=== PATIENT | female | born 2000 | race American Indian/Alaskan Native ===

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

== ENCOUNTER 2021-04-10 05:39 | Inpatient (IN) | payer MEDICAID ==
[2021-04-10] MEDS ORDERED: Lactated Ringers 1,000 ML IV ONE (07:10)
[2021-04-10] MEDS ORDERED: Tranexamic Acid 1,000 MG in Sodium Chloride 0.9% 100 ML IV PRN ×2 (07:10→22:30)
[2021-04-10] MEDS ORDERED: Ondansetron 4 MG/2 ML SDV IVPUSH PRN ×2 (07:10)
[2021-04-10] MEDS ORDERED: Naloxone 2 MG/2 ML Syringe IVPUSH PRN (07:10)
[2021-04-10] MEDS ORDERED: Acetaminophen 325 MG Tab PO PRN (07:10)
[2021-04-10] MEDS ORDERED: ePHEDrine 50 MG/ML SDV IVPUSH PRN (07:10)
[2021-04-10] MEDS ORDERED: Misoprostol 400 MCG (4 X 100 MCG TAB) RECTAL PRN ×2 (07:10→22:30)
[2021-04-10] MEDS ORDERED: Methylergonovine 0.2 MG/1 ML Amp IM PRN (07:10)
[2021-04-10] MEDS ORDERED: Carboprost Tromethamine 250 MCG/1 ML Amp IM PRN ×2 (07:10→22:30)
[2021-04-10] MEDS ORDERED: Lidocaine 1% 30 ML SDV INJECT PRN (07:10)
[2021-04-10] MEDS ORDERED: Promethazine 25 MG/ML SDV IM PRN (07:10)
[2021-04-10] MEDS ORDERED: fentaNYL 100 MCG/2 ML SDV IVPUSH PRN (07:10)
[2021-04-10] MEDS ORDERED: Lactated Ringers 500 ML IV SCH ×2 (07:15)
[2021-04-10] MEDS ORDERED: Oxytocin/Normal Saline 30 UNIT/500 ML BAG IV SCH (07:15)
[2021-04-10] MEDS ORDERED: Nalbuphine 10 MG/1 ML Vial IM ONE (10:11)
[2021-04-10] MEDS: Lactated Ringers 1,000 ML IV SCH ×3 (14:28→17:18)
[2021-04-10] MEDS ORDERED: Sodium Bicarbonate 4.2% 2.5 MEQ/5 ML SDV ONE ×2 (16:50→17:03)
[2021-04-10] MEDS ORDERED: EPINEPHrine 1 MG/ML SDV ONE ×2 (16:50→17:03)
[2021-04-10] MEDS ORDERED: fentaNYL 100 MCG/2 ML SDV ITHECAL ONE (16:50)
[2021-04-10] MEDS ORDERED: Sodium Chloride 0.9% 20 ML SDV ONE (16:50)
[2021-04-10] MEDS ORDERED: fentaNYL 100 MCG/2 ML SDV ONE (17:03)
[2021-04-10] MEDS ORDERED: Benzocaine/Menthol 20%-0.5% Spray 78 GM Cannister TOP PRN (22:30)
[2021-04-10] MEDS ORDERED: Oxytocin 10 Units/1 ML SDV IM PRN (22:30)
[2021-04-10] MEDS ORDERED: Simethicone 80 MG Tab.Chew PO PRN (22:30)
[2021-04-11] MEDS ORDERED: Witch Hazel Medicated Pads 100/Jar TOP PRN (00:18)
[2021-04-11] MEDS: Docusate Sodium 100 MG Cap PO PRN ×3 (00:20→19:32)
[2021-04-11] MEDS: Ibuprofen 800 MG Tab PO PRN ×3 (00:20→19:32)
[2021-04-11] MEDS: Acetaminophen 325 MG Tab PO PRN ×2 (04:12→19:32)
[2021-04-11] MEDS: Prenatal Multivitamin with Calcium/Folic Acid/Iron Tab PO SCH (09:11)
[2021-04-11] MEDS: Ferrous Sulfate 325 MG Tab PO SCH (09:11)
[2021-04-11] MEDS: guaiFENesin 600 MG Tab.ER PO SCH ×2 (09:16→19:31)
[2021-04-11] MEDS: Benzocaine/Cetylpyridinium/Menthol Lozenge MUCMEM PRN ×2 (09:16→19:31)
[2021-04-12] MEDS: guaiFENesin 600 MG Tab.ER PO SCH ×2 (07:11→08:22)
[2021-04-12] MEDS: Benzocaine/Cetylpyridinium/Menthol Lozenge MUCMEM PRN (08:22)
[2021-04-12] MEDS: Ferrous Sulfate 325 MG Tab PO SCH (08:23)
[2021-04-12] MEDS: Docusate Sodium 100 MG Cap PO PRN (08:23)
[2021-04-12] MEDS: Prenatal Multivitamin with Calcium/Folic Acid/Iron Tab PO SCH (08:23)
[2021-04-12] MEDS: Ibuprofen 800 MG Tab PO PRN (08:23)
[2021-04-12 09:50] VITALS: BP 132/78; PULSE 105
== END 2021-04-12 13:00 | disposition home or self-care (01) | DRG 805 ==
LOC: DL.OBCHECK 05:39 → DL.OB 07:40
PROVIDERS: ADMIT Family Medicine; ATTEND Family Medicine
PROC: 10D07Z6 Extraction of Products of Conception, Vacuum, Via Natural or Artificial Opening (ICD-10-PCS; principal; 2021-04-10)
PROC: 0HQ9XZZ Repair Perineum Skin, External Approach (ICD-10-PCS; 2021-04-10)
PROC: 0UQMXZZ Repair Vulva, External Approach (ICD-10-PCS; 2021-04-10)
PROC: 3E0R3BZ Introduction of Anesthetic Agent into Spinal Canal, Percutaneous Approach (ICD-10-PCS; 2021-04-10)
PROC: 00HU33Z Insertion of Infusion Device into Spinal Canal, Percutaneous Approach (ICD-10-PCS; 2021-04-10)
DX: O99.02 Anemia complicating childbirth (principal); U07.1 COVID-19; Z37.0 Single live birth; O98.52 Other viral diseases complicating childbirth; D64.9 Anemia, unspecified; O99.344 Other mental disorders complicating childbirth; F41.9 Anxiety disorder, unspecified; F32.A Depression, unspecified; O70.0 First degree perineal laceration during delivery; O66.0 Obstructed labor due to shoulder dystocia; O77.0 Labor and delivery complicated by meconium in amniotic fluid
CPT/HCPCS: 36415; 51701; 59409; 85027; 86592; A9270-GY; J0171; J2300; J2405; J2590; J3010; J7120; U0002

== ENCOUNTER 2021-12-20 08:50 | Emergency (ER) | payer MEDICAID | END 2021-12-20 10:50 | disposition home or self-care (01) | LOC: DL.ED 08:50 | DX: S51.811A Laceration without foreign body of right forearm, initial encounter (principal); W45.8XXA Other foreign body or object entering through skin, initial encounter | CPT/HCPCS: 12004; 73090-RT; 99283 ==

== ENCOUNTER 2021-12-20 11:48 | Emergency (ER) | payer MEDICAID ==
[~2021-12-20 11:48] MED LIST: Bacitracin Oint 1 GM U/D Packet TOP ONE; Bupivacaine 0.5% 30 ML SDV INJECT ONE; Lidocaine 1% 10 ML MDV INJECT ONE
== END 2021-12-20 13:04 | disposition home or self-care (01) ==
LOC: DL.ED 11:48
DX: R55 Syncope and collapse (principal)
CPT/HCPCS: 99283; J3490

== ENCOUNTER 2022-12-05 18:44 | Emergency (ER) | payer MEDICAID ==
[2022-12-05] MEDS ORDERED: Ibuprofen 400 MG Tab PO ONE (19:11)
[2022-12-05] MEDS ORDERED: Lactated Ringers 1,000 ML IV ONE ×2 (19:11→20:08)
[2022-12-05 19:24] LABS: APPEARANCE,URINE CLEAR (CLEAR); BILIRUBIN,URINE SMALL (NEGATIVE); COLOR,URINE YELLOW (YELLOW); GLUCOSE,URINE NEGATIVE (NEGATIVE); KETONES,URINE >=160 (NEGATIVE); LEUKOCYTE ESTERASE,URINE NEGATIVE (NEGATIVE); NITRITE,URINE NEGATIVE (NEGATIVE); OCCULT BLOOD,URINE NEGATIVE (NEGATIVE); PROTEIN,URINE 100 (NEGATIVE)
[2022-12-05 19:31] LABS: AMPHETAMINES,URINE NEGATIVE (NEGATIVE); BARBITURATES,URINE NEGATIVE (NEGATIVE); BENZODIAZEPINE,URINE NEGATIVE (NEGATIVE); MDMA (ECSTASY), URINE NEGATIVE (NEGATIVE); METHADONE,URINE NEGATIVE (NEGATIVE); METHAMPHETAMINES,URINE NEGATIVE (NEGATIVE); OPIATES,URINE NEGATIVE (NEGATIVE); OXYCODONE,URINE NEGATIVE (NEGATIVE); PHENCYCLIDINE,URINE NEGATIVE (NEGATIVE); TCA,URINE NEGATIVE (NEGATIVE)
[2022-12-05 19:35] LABS: BASOPHILS PERCENT AUTO 0.1 % (0.0-1.0); EOSINOPHILS PERCENT AUTO 0.1 % (1.0-3.0); HEMATOCRIT 38.5 % (37.0-47.0); HEMOGLOBIN 14.4 g/dL (12.0-16.0); LYMPHOCYTES PERCENT AUTO 10.2 % (20.5-50.1); MEAN CORPUSCULAR HGB CONC 37.4 g/dL (33.0-35.0); MEAN CORPUSCULAR VOLUME 77.6 fL (80-100); MONOCYTES PERCENT AUTO 8.6 % (2-8); PLATELET COUNT,PLT 299 10^3/uL (150-450); RED BLOOD CELL COUNT 4.96 10^6/uL (4.2-5.4); WHITE BLOOD CELL COUNT,WBC 14.9 10^3/uL (5.0-10.0)
[2022-12-05 19:47] LABS: BACTERIA,URINE MODERATE /HPF (0-FEW/HPF); EPITHELIAL CELLS,URINE MANY /HPF (NOT SEEN)
[2022-12-05 19:48] LABS: MUCUS,URINE MODERATE /LPF (NOT SEEN)
[2022-12-05 19:56] LABS: A/G RATIO 1.1; ALANINE AMINOTRANSFERASE,ALT 25 U/L (14-59); ALKALINE PHOSPHATASE 101 U/L (46-116); ASPARTATE AMNIOTRANSFERASE,AST 14 U/L (15-37); BILIRUBIN TOTAL 0.7 mg/dL (0.2-1.0); BLOOD UREA NITROGEN,BUN 8 mg/dL (7-18); BUN/CREATININE RATIO 8.7 (No establ ref range); C-REACTIVE PROTEIN 12.51 ng/dL (<=0.30); CALCIUM 8.9 mg/dL (8.5-10.1); CARBON DIOXIDE,CO2 21 mmol/L (21-32); CHLORIDE,CL 102 mmol/L (98-107); CREATININE 0.92 mg/dL (0.55-1.02); EST CRCL DRUG DOSING (CG) 97.58 mL/min; ESTIMATED GFR 91 mL/min (>=60); ETHANOL BLOOD MEDICAL < 3 mg/dL (0); GLUCOSE RANDOM 107 mg/dL (70-99); PROTEIN TOTAL,TP 7.7 g/dL (6.4-8.2); SODIUM,NA 139 mmol/L (136-145)
[2022-12-05 19:59] VITALS: BP 110/68; PULSE 118
[2022-12-05 20:02] LABS: HCG QUALITATIVE,SERUM NEGATIVE (NEGATIVE)
[2022-12-05] MEDS ORDERED: Ondansetron 4 MG/2 ML SDV IVPUSH ONE (20:08)
[2022-12-05] MEDS ORDERED: Potassium Chloride 10% 20 MEQ/15 ML Soln 15 ML UD Cup PO ONE (20:09)
[2022-12-05] MEDS ORDERED: cefTRIAXone 1 GM Vial IVPUSH ONE (20:10)
== END 2022-12-05 21:15 | disposition home or self-care (01) ==
LOC: DL.ED 18:44
DX: J10.1 Influenza due to other identified influenza virus with other respiratory manifestations (principal); N30.00 Acute cystitis without hematuria; Z20.822 Contact with and (suspected) exposure to COVID-19; Z79.899 Other long term (current) drug therapy
CPT/HCPCS: 36415; 80053; 80305-QW; 80307; 81001; 83605; 84703; 85025; 86140; 87081; 87430; 87804; 96361; 96374; 96375; 99283-25; 99284; A9270-GY; J0696; J2405; J7120; U0002

== ENCOUNTER 2022-12-26 11:13 | Emergency (ER) | payer MEDICAID | END 2022-12-26 11:15 | disposition left against medical advice (07) | LOC: DL.ED 11:13 | DX: Z53.21 Procedure and treatment not carried out due to patient leaving prior to being seen by health care provider (principal) ==

== ENCOUNTER 2023-09-02 15:59 | Emergency (ER) | payer MEDICAID ==
[2023-09-02] MEDS: Sodium Chloride 0.9% 1,000 ML IV ONE (17:30)
[2023-09-02 17:34] LABS: BASOPHILS PERCENT AUTO 0.1 % (0.0-1.0); EOSINOPHILS PERCENT AUTO 0.2 % (1.0-3.0); HEMATOCRIT 38.2 % (37.0-47.0); HEMOGLOBIN 13.1 g/dL (12.0-16.0); LYMPHOCYTES PERCENT AUTO 10.7 % (20.5-50.1); MEAN CORPUSCULAR HEMOGLOBIN 27.8 pg (27.0-34.0); MEAN CORPUSCULAR HGB CONC 34.3 g/dL (33.0-35.0); MEAN CORPUSCULAR VOLUME 80.9 fL (80-100); MONOCYTES PERCENT AUTO 4.2 % (2-8); NEUTROPHILS PERCENT AUTO 84.8 % (42.2-75.2); PLATELET COUNT,PLT 315 10^3/uL (150-450); RED BLOOD CELL COUNT 4.72 10^6/uL (4.2-5.4)
[2023-09-02 17:41] VITALS: BP 127/84; PULSE 67
[2023-09-02] MEDS: Famotidine 20 MG/2 ML SDV IVPUSH ONE (17:41)
[2023-09-02] MEDS: Ondansetron 4 MG/2 ML SDV IVPUSH ONE ×2 (17:41→18:50)
[2023-09-02 17:54] LABS: A/G RATIO 0.9; ALANINE AMINOTRANSFERASE,ALT 19 U/L (14-59); ALBUMIN 3.4 g/dL (3.4-5.0); ALKALINE PHOSPHATASE 61 U/L (46-116); ANION GAP 18.5 mEq/L (7-13); ASPARTATE AMNIOTRANSFERASE,AST 10 U/L (15-37); BILIRUBIN TOTAL 0.4 mg/dL (0.2-1.0); BLOOD UREA NITROGEN,BUN 6 mg/dL (7-18); BUN/CREATININE RATIO 8.8 (No establ ref range); CALCIUM 9.3 mg/dL (8.5-10.1); CARBON DIOXIDE,CO2 21 mmol/L (21-32); CHLORIDE,CL 104 mmol/L (98-107); CREATININE 0.68 mg/dL (0.55-1.02); GLUCOSE RANDOM 79 mg/dL (70-99); LIPASE 13 U/L (16-77); MAGNESIUM 1.8 mg/dL (1.8-2.4); POTASSIUM,K 3.5 mmol/L (3.5-5.1); PROTEIN TOTAL,TP 7.2 g/dL (6.4-8.2); SODIUM,NA 140 mmol/L (136-145)
[2023-09-02 17:56] LABS: ESTIMATED GFR 127 mL/min (>=60)
[2023-09-02 18:47] LABS: APPEARANCE,URINE SLIGHTLY CLOUDY (CLEAR); BILIRUBIN,URINE NEGATIVE (NEGATIVE); COLOR,URINE DARK YELLOW (YELLOW); GLUCOSE,URINE NEGATIVE (NEGATIVE); KETONES,URINE >=160 (NEGATIVE); LEUKOCYTE ESTERASE,URINE TRACE (NEGATIVE); NITRITE,URINE POSITIVE (NEGATIVE); OCCULT BLOOD,URINE NEGATIVE (NEGATIVE); PH,URINE 6.5 (5.0-9.0); PROTEIN,URINE 30 (NEGATIVE)
[2023-09-02] MEDS: Sodium Chloride 0.9% 500 ML IV ONE (18:49)
[2023-09-02 18:59] LABS: AMORPHOUS SEDIMENT,URINE FEW /HPF (NOT SEEN); BACTERIA,URINE MANY /HPF (0-FEW/HPF); EPITHELIAL CELLS,URINE MODERATE /HPF (NOT SEEN); MUCUS,URINE MODERATE /LPF (NOT SEEN); RBC,URINE 0-5 /HPF (0-5)
[2023-09-02] MEDS: cefTRIAXone 1 GM Vial IVPUSH ONE (19:13)
== END 2023-09-02 19:24 | disposition home or self-care (01) ==
LOC: DL.ED 15:59
DX: O21.0 Mild hyperemesis gravidarum (principal); O99.282 Endocrine, nutritional and metabolic diseases complicating pregnancy, second trimester; E86.0 Dehydration; O23.41 Unspecified infection of urinary tract in pregnancy, first trimester; Z3A.09 9 weeks gestation of pregnancy; Z79.899 Other long term (current) drug therapy; Z86.16 Personal history of COVID-19
CPT/HCPCS: 36415; 80053; 81001; 83690; 83735; 84702; 85025; 87086; 87088; 87186; 96361; 96374; 96375; 96376; 99283; 99284; J0696; J2405; J3490; J7030

== ENCOUNTER 2024-03-25 00:05 | Observation (INO) | payer MEDICAID ==
[~2024-03-25 00:05] MED LIST changes: +Acetaminophen 325 MG Tab PO PRN; -Bacitracin Oint 1 GM U/D Packet TOP ONE; -Bupivacaine 0.5% 30 ML SDV INJECT ONE; +Carboprost Tromethamine 250 MCG/1 ML Amp IM PRN; +Lactated Ringers 1,000 ML IV SCH; -Lidocaine 1% 10 ML MDV INJECT ONE; +Lidocaine 1% 30 ML SDV INJECT ONE; +Methylergonovine 0.2 MG/1 ML Amp IM PRN; +Misoprostol 100 MCG Tab RECTAL PRN; +Ondansetron 4 MG/2 ML SDV IVPUSH PRN; +Oxytocin/Normal Saline 30 UNIT/500 ML BAG IV SCH; +Sodium Chloride 0.9% 10 ML Syringe FLUSH PRN; +Tranexamic Acid 1,000 MG in Sodium Chloride 0.9% 100 ML IV PRN; +fentaNYL 100 MCG/2 ML SDV IVPUSH PRN
[2024-03-25 00:44] LABS: HEMATOCRIT 32.8 % (37.0-47.0); HEMOGLOBIN 10.5 g/dL (12.0-16.0); MEAN CORPUSCULAR VOLUME 84.3 fL (80-100); RED BLOOD CELL COUNT 3.89 10^6/uL (4.2-5.4); WHITE BLOOD CELL COUNT,WBC 8.3 10^3/uL (5.0-10.0)
[2024-03-25] MEDS: Misoprostol 50 MCG (1/2 of 100 MCG) Tab PO SCH (01:15)
[2024-03-25] MEDS: Misoprostol 25 MCG (1/4 of 100 MCG) Tab PO PRN (10:45)
[2024-03-25] MEDS: Lactated Ringers 1,000 ML IV ONE (14:08)
[2024-03-25 17:45] VITALS: BP 118/75; PULSE 99
== END 2024-03-25 17:10 | disposition home or self-care (01) ==
LOC: DL.OB 00:05
PROVIDERS: ADMIT Family Medicine; ATTEND Family Medicine
DX: O99.013 Anemia complicating pregnancy, third trimester (principal); O21.9 Vomiting of pregnancy, unspecified; O23.43 Unspecified infection of urinary tract in pregnancy, third trimester; N39.0 Urinary tract infection, site not specified; O99.343 Other mental disorders complicating pregnancy, third trimester; F41.9 Anxiety disorder, unspecified; F32.A Depression, unspecified; Z79.899 Other long term (current) drug therapy
CPT/HCPCS: 36415; 85027; A9270-GY; J7120

== ENCOUNTER 2024-03-27 00:07 | Inpatient (IN) | payer MEDICAID ==
[~2024-03-27 00:07] MED LIST changes: -Lactated Ringers 1,000 ML IV SCH; -Lidocaine 1% 30 ML SDV INJECT ONE; -Methylergonovine 0.2 MG/1 ML Amp IM PRN; -Misoprostol 100 MCG Tab RECTAL PRN; +Misoprostol 25 MCG (1/4 of 100 MCG) Tab VAG PRN; +Naloxone 2 MG/2 ML Syringe IVPUSH PRN; -Oxytocin/Normal Saline 30 UNIT/500 ML BAG IV SCH
[2024-03-27 00:39] LABS: HEMATOCRIT 31.8 % (37.0-47.0); HEMOGLOBIN 10.2 g/dL (12.0-16.0); MEAN CORPUSCULAR HEMOGLOBIN 26.8 pg (27.0-34.0); MEAN CORPUSCULAR HGB CONC 32.1 g/dL (33.0-35.0); MEAN CORPUSCULAR VOLUME 83.7 fL (80-100); RED BLOOD CELL COUNT 3.8 10^6/uL (4.2-5.4); WHITE BLOOD CELL COUNT,WBC 7.5 10^3/uL (5.0-10.0)
[2024-03-27] MEDS: Misoprostol 50 MCG (1/2 of 100 MCG) Tab VAG SCH (01:03)
[2024-03-27] MEDS: Misoprostol 50 MCG (1/2 of 100 MCG) Tab VAG PRN (08:13)
[2024-03-27] MEDS: Lactated Ringers 1,000 ML IV SCH (12:51)
[2024-03-27] MEDS: Oxytocin/Normal Saline 30 UNIT/500 ML BAG IV SCH (13:57)
[2024-03-27] MEDS ORDERED: Phenylephrine HCl In 0.9% NaCl 1 MG/10 ML Syringe IVPUSH PRN (15:58)
[2024-03-27] MEDS ORDERED: ePHEDrine 50 MG/ML SDV IVPUSH PRN (15:58)
[2024-03-27] MEDS ORDERED: Ropivacaine 200 MG in Premix Bag 1 BAG EPIDUR SCH (16:00)
[2024-03-27] MEDS: Misoprostol 100 MCG Tab RECTAL PRN (20:31)
[2024-03-27] MEDS: Methylergonovine 0.2 MG/1 ML Amp IM PRN (20:36)
[2024-03-27] MEDS ORDERED: Simethicone 80 MG Tab.Chew PO PRN (20:55)
[2024-03-27] MEDS ORDERED: Sodium Chloride 0.9% 10 ML Syringe FLUSH PRN (20:55)
[2024-03-27] MEDS ORDERED: Acetaminophen/HYDROcodone 325-10 MG Tab PO PRN (20:55)
[2024-03-27] MEDS ORDERED: Oxytocin 10 Units/1 ML SDV IM PRN (20:55)
[2024-03-27] MEDS ORDERED: Methylergonovine 0.2 MG Tab PO PRN (20:55)
[2024-03-27] MEDS ORDERED: Carboprost Tromethamine 250 MCG/1 ML Amp IM PRN (20:55)
[2024-03-27] MEDS ORDERED: Tranexamic Acid 1,000 MG in Sodium Chloride 0.9% 100 ML IV PRN (20:55)
[2024-03-27] MEDS ORDERED: Hydrocortisone 2.5% Crm 30 GM Tube TOP PRN (20:55)
[2024-03-27] MEDS: Ibuprofen 800 MG Tab PO SCH (22:09)
[2024-03-27] MEDS: Witch Hazel Medicated Pads 100/Jar TOP PRN (22:10)
[2024-03-27] MEDS: Benzocaine/Menthol 20%-0.5% Spray 78 GM Cannister TOP PRN (22:10)
[2024-03-27] MEDS: Lidocaine 1% 30 ML SDV INJECT ONE (23:20)
[2024-03-27] MEDS: Lactated Ringers 1,000 ML IV ONE (23:20)
[2024-03-28] MEDS: Acetaminophen 325 MG Tab PO PRN (01:46)
[2024-03-28 06:30] LABS: HEMOGLOBIN 10.5 g/dL (12.0-16.0)
[2024-03-28] MEDS: Ferrous Sulfate 325 MG Tab PO SCH (08:38)
[2024-03-28] MEDS: Docusate Sodium 100 MG Cap PO PRN (08:39)
[2024-03-28] MEDS: Prenatal Multivitamin with Calcium/Folic Acid/Iron Tab PO SCH (08:39)
[2024-03-28] MEDS ORDERED: Ondansetron 4 MG/2 ML SDV IV ONE (15:40)
[2024-03-28] MEDS ORDERED: Ropivacaine 100 ML EPIDUR ONE (15:40)
[2024-03-28] MEDS ORDERED: Ketorolac 30 MG/ML SDV IVPUSH ONE (15:40)
[2024-03-28] MEDS ORDERED: Bupivacaine 0.25% 10 ML SDV NERVRT ONE (15:40)
[2024-03-28] MEDS ORDERED: fentaNYL 100 MCG/2 ML SDV EPIDUR ONE (15:40)
[2024-03-29 11:17] VITALS: BP 136/89; PULSE 94
== END 2024-03-29 11:02 | disposition home or self-care (01) | DRG 807 ==
LOC: DL.OB 00:07 → OBSVTOIN 20:16
PROVIDERS: ADMIT Family Medicine; ATTEND Family Medicine
PROC: 10E0XZZ Delivery of Products of Conception, External Approach (ICD-10-PCS; principal; 2024-03-27)
PROC: 10907ZC Drainage of Amniotic Fluid, Therapeutic from Products of Conception, Via Natural or Artificial Opening (ICD-10-PCS; 2024-03-27)
PROC: 3E033VJ Introduction of Other Hormone into Peripheral Vein, Percutaneous Approach (ICD-10-PCS; 2024-03-27)
PROC: 3E0R3BZ Introduction of Anesthetic Agent into Spinal Canal, Percutaneous Approach (ICD-10-PCS; 2024-03-27)
PROC: 00HU33Z Insertion of Infusion Device into Spinal Canal, Percutaneous Approach (ICD-10-PCS; 2024-03-27)
DX: O99.02 Anemia complicating childbirth (principal); Z37.0 Single live birth; O75.89 Other specified complications of labor and delivery; Z3A.39 39 weeks gestation of pregnancy
CPT/HCPCS: 36415; 51702; 59409; 85014; 85018; 85027; A9270-GY; J0665; J1885; J2210; J2405; J2590; J2795; J3010; J7120